=== PATIENT | male | born 1960 | race Caucasian/White ===

== ENCOUNTER 2017-09-11 04:49 | Emergency (ER) | payer OTHER ==
[~2017-09-11] VITALS: Ht 167.6 cm; Wt 75.0 kg
[~2017-09-11 04:49] MED LIST: AMLO2.5T PO
[2017-09-11 04:52] VITALS: BP 141/78; PULSE 91; RESP 18; TEMP 98.2; O2SAT 98
[2017-09-11 05:06] VITALS: BP 133/85; PULSE 87; RESP 20; O2SAT 95
[2017-09-11] MEDS ORDERED: MEDR4TAB PO (05:06)
[2017-09-11] MEDS ORDERED: BACT800T5 PO (05:06)
[2017-09-11] MEDS ORDERED: MUPI2OIN TOPICAL (05:06)
[2017-09-11] MEDS ORDERED: SODIUM CHLOR 0.9% 1000 ML INJ 1,000 ML IV SCH (05:14)
[2017-09-11] MEDS ORDERED: METOCLOPRAMIDE HCL 10 MG/2 ML VIAL IV PUSH ONE (05:15)
[2017-09-11] MEDS ORDERED: SODIUM CHLORIDE 0.9% FLUSH 10 ML FLUSH IV FLUSH PRN (05:15)
--- NOTE | 2017-09-11 05:23 | PD ---
HPI Chief Complaint: GI Complaint Time Seen by Provider: 05:07 Travel History International Travel<30 days: No Contact w/Intl Traveler<30days: No Traveled to known affect area: No History of Present Illness HPI Patient is a 57-year-old male who presents the emergency room complaints of nausea vomiting and dizziness. Patient reports that he was recently treated for right elbow infection with Bactrim. Patient reports that his right elbow infection has improved, reports that he has almost complete his full course of his antibiotics as well as his Medrol Dosepak. Patient reports that over the past 2 days, he has developed nausea, vomiting and abdominal pain. Patient reports that since yesterday, he has been unable to keep down any fluids or foods, patient reports that last night, he began to feel dizzy. Patient reports that he feels as if he has vertigo as he has had this in the past. Reports that his abdomen does feel crampy, there is no focal pain. Denies fever /chills. Denies sick contacts. PFSH Past Medical History Medical History: Denies Significant Hx Diminished Hearing: No Tetanus Vaccination: < 5 Years Influenza Vaccination: No Past Surgical History Surgical History: No Previous Surgery Social History Alcohol Use: Yes (6 PACK ADAY) Tobacco Use: Yes (2-3 PPD) Substance Use: No Allergies-Medications (Allergen,Severity, Reaction): Coded Allergies: No Known Allergies (Verified Adverse Reaction, Unknown, 09/11/17) Reported Meds & Prescriptions Reported Meds & Active Scripts Active Amlodipine (Amlodipine Besylate) 2.5 Mg Tab 2.5 Mg PO DAILY Reported Bactrim DS (Sulfamethoxazole-Trimethoprim) 800-160 Mg Tab 1 Tab PO BID Medrol (Methylprednisolone) 4 Mg Tab 4 Mg PO TAPER Mupirocin Topical (Mupirocin) 2 % Oint 1 Applic TOPICAL BID Review of Systems General / Constitutional: No: Fever Eyes: No: Visual changes HENT: Positive: Lightheadedness, No: Headaches Cardiovascular: No: Chest Pain or Discomfort Respiratory: No: Shortness of Breath Gastrointestinal: Positive: Nausea, Vomiting, Diarrhea, No: Abdominal Pain Genitourinary: No: Dysuria Musculoskeletal: No: Pain Skin: No Rash Neurologic: Positive: Dizziness, No: Weakness Psychiatric: No: Depression Endocrine: No: Polydipsia Hematologic/Lymphatic: No: Easy Bruising Physical Exam Narrative GENERAL: NAD SKIN: Focused skin assessment warm/dry. HEAD: Atraumatic. Normocephalic. EYES: Pupils equal and round. No scleral icterus. No injection or drainage. ENT: No nasal bleeding or discharge. Mucous membranes pink and moist. NECK: Trachea midline. No JVD. CARDIOVASCULAR: Regular rate and rhythm. No murmur appreciated. RESPIRATORY: No accessory muscle use. Clear to auscultation. Breath sounds equal bilaterally. GASTROINTESTINAL: Abdomen soft, non-tender, nondistended. Hepatic and splenic margins not palpable. MUSCULOSKELETAL: No obvious deformities. No clubbing. No cyanosis. No edema. NEUROLOGICAL: Awake and alert. No obvious cranial nerve deficits. Motor grossly within normal limits. Normal speech. CN 2- 12 grossly intact with no neurological deficits PSYCHIATRIC: Appropriate mood and affect; insight and judgment normal. Data Data Last Documented VS Vital Signs Date Time Temp Pulse Resp B/P (MAP) Pulse Ox O2 Delivery O2 Flow Rate FiO2 09/11/17 05:27 16 96 Room Air 09/11/17 05:06 87 09/11/17 04:52 98.2 Orders Orders Complete Blood Count With Diff (09/11/17 05:14) Comprehensive Metabolic Panel (09/11/17 05:14) Lipase (09/11/17 05:14) Prothrombin Time / Inr (Pt) (09/11/17 05:14) Act Partial Throm Time (Ptt) (09/11/17 05:14) Urinalysis - C+S If Indicated (09/11/17 05:14) Iv Access Insert/Monitor (09/11/17 05:14) Ecg Monitoring (09/11/17 05:14) Oximetry (09/11/17 05:14) Sodium Chlor 0.9% 1000 Ml Inj (Ns 1000 M (09/11/17 05:14) Sodium Chloride 0.9% Flush (Ns Flush) (09/11/17 05:15) Metoclopramide Inj (Reglan Inj) (09/11/17 05:15) Alcohol (Ethanol) (09/11/17 05:24) Ns (Bolus) Inj (09/11/17 06:30) Labs Laboratory Tests Test 09/11/17 05:24 White Blood Count 3.7 TH/MM3 Red Blood Count 5.33 MIL/MM3 Hemoglobin 17.0 GM/DL Hematocrit 49.3 % Mean Corpuscular Volume 92.4 FL Mean Corpuscular Hemoglobin 31.9 PG Mean Corpuscular Hemoglobin Concent 34.5 % Red Cell Distribution Width 12.6 % Platelet Count 171 TH/MM3 Mean Platelet Volume 8.2 FL Neutrophils (%) (Auto) 62.8 % Lymphocytes (%) (Auto) 10.6 % Monocytes (%) (Auto) 17.8 % Eosinophils (%) (Auto) 7.5 % Basophils (%) (Auto) 1.3 % Neutrophils # (Auto) 2.3 TH/MM3 Lymphocytes # (Auto) 0.4 TH/MM3 Monocytes # (Auto) 0.7 TH/MM3 Eosinophils # (Auto) 0.3 TH/MM3 Basophils # (Auto) 0.0 TH/MM3 CBC Comment DIFF FINAL Differential Comment Prothrombin Time 10.2 SEC Prothromb Time International Ratio 1.0 RATIO Activated Partial Thromboplast Time 29.0 SEC Blood Urea Nitrogen 15 MG/DL Creatinine 1.13 MG/DL Random Glucose 111 MG/DL Total Protein 7.4 GM/DL Albumin 3.6 GM/DL Calcium Level 8.3 MG/DL Alkaline Phosphatase 74 U/L Aspartate Amino Transf (AST/SGOT) 19 U/L Alanine Aminotransferase (ALT/SGPT) 26 U/L Total Bilirubin 0.3 MG/DL Sodium Level 135 MEQ/L Potassium Level 3.8 MEQ/L Chloride Level 101 MEQ/L Carbon Dioxide Level 24.3 MEQ/L Anion Gap 10 MEQ/L Estimat Glomerular Filtration Rate 67 ML/MIN Lipase 163 U/L Ethyl Alcohol Level LESS THAN 3 MG/DL MDM Medical Decision Making Medical Screen Exam Complete: Yes Emergency Medical Condition: Yes Medical Record Reviewed: Yes Interpretation(s) Vital Signs Date Time Temp Pulse Resp B/P (MAP) Pulse Ox O2 Delivery O2 Flow Rate FiO2 09/11/17 05:06 87 20 133/85 (101) 95 Room Air 09/11/17 04:52 98.2 91 18 141/78 (99) 98 Differential Diagnosis Electrolyte abnormality, viral syndrome, vertigo, posterior CVA, dehydration, alcohol withdrawal Narrative Course During the course of the patients emergency department visit, the patients history, examination, and differential diagnosis were reviewed with the patient. The patient was placed on a medical staff credentialing coordinator with oximetry and frequent blood pressure monitoring. The patient had an IV access obtained and blood work sent for analysis. The patient was initially provided IV fluids as well as IV Reglan. The patients laboratory studies were reviewed and remarkable for CBC & BMP Diagram 09/11/17 05:24 Total Protein 7.4, Albumin 3.6, Calcium Level 8.3 L, Alkaline Phosphatase 74, Aspartate Amino Transf (AST/SGOT) 19, Alanine Aminotransferase (ALT/SGPT) 26, Total Bilirubin 0.3 patient re-evaluated, patient feeling much better at this time. he is able to tolerate a po trail and drank Gatorade without any difficulties. I reviewed all labs and studies with patient in detail. Signs and symptoms of when to return to the ER was reviewed with patient in detail. At discharge, abdomen is soft, nd/nt, no peritoneal signs. patient appreciative of care Diagnosis Primary Impression: Nausea vomiting and diarrhea Patient Instructions: General Instructions Additional Instructions: Please provide patient with a copy of their lab work and studies at discharge* * Please follow up with your primary care doctor in 2-3 days Return to the ER if symptoms worsen or progress Return to the ER as needed Med/Other Pt SpecificInfo: Prescription(s) given Scripts Ondansetron (Zofran) 4 Mg Tab 4 MG PO Q6HR Y for NAUSEA OR VOMITING, #20 TAB 0 Refills Prov: Bijal Faye DO 09/11/17 Disposition: 01 DISCHARGE HOME Condition: Stable Bijal Faye DO Sep 11, 2017 05:23
[2017-09-11 05:27] VITALS: RESP 16; O2SAT 96
[2017-09-11 05:38] LABS: AUTOMATED NEUTROPHIL # 2.3 TH/MM3 (1.8-7.7); BASOPHIL % 1.3 % (0.0-2.0); EOSINOPHIL # 0.3 TH/MM3 (0-0.4); EOSINOPHIL % 7.5 % (0.0-4.0); HEMATOCRIT 49.3 % (39.0-51.0); LYMPH % 10.6 % (9.0-44.0); LYMPHOCYTE # 0.4 TH/MM3 (1.0-4.8); MEAN CELL VOLUME 92.4 FL (80.0-100.0); MEAN CORPUSCULAR HEMOGLOBIN 31.9 PG (27.0-34.0); MEAN CORPUSCULAR HGB CONC 34.5 % (32.0-36.0); MEAN PLATELET VOLUME 8.2 FL (7.0-11.0); MONO % 17.8 % (0.0-8.0); MONOCYTE # 0.7 TH/MM3 (0-0.9); NEUT % 62.8 % (16.0-70.0); PLATELET COUNT 171 TH/MM3 (150-450); RED BLOOD COUNT 5.33 MIL/MM3 (4.50-5.90); RED CELL DISTRIBUTION WIDTH 12.6 % (11.6-17.2); WHITE BLOOD COUNT 3.7 TH/MM3 (4.0-11.0)
[2017-09-11 05:46] LABS: PROTHROMBIN TIME - PATIENT 10.2 SEC (9.8-11.6)
[2017-09-11 06:03] LABS: ALKALINE PHOSPHATASE 74 U/L (45-117); TOTAL BILIRUBIN ADULT 0.3 MG/DL (0.2-1.0); TOTAL PROTEIN 7.4 GM/DL (6.4-8.2)
[2017-09-11 06:06] LABS: ALBUMIN 3.6 GM/DL (3.4-5.0); ALT (GPT) 26 U/L (12-78); AST (GOT) 19 U/L (15-37); BICARBONATE 24.3 MEQ/L (21.0-32.0); BLOOD UREA NITROGEN 15 MG/DL (7-18); CALCIUM 8.3 MG/DL (8.5-10.1); CHLORIDE 101 MEQ/L (98-107); CREATININE 1.13 MG/DL (0.60-1.30); GLOMERULAR FILTRATION RATE 67 ML/MIN (>89); GLUCOSE,RANDOM 111 MG/DL (74-106); SODIUM (NA) 135 MEQ/L (136-145)
[2017-09-11] MEDS ORDERED: SODIUM CHLOR 0.9% 1000 ML INJ 1,000 ML IV ONE (06:30)
[2017-09-11] MEDS ORDERED: ZOFR4TAB PO (06:30)
== END 2017-09-11 07:35 | disposition home or self-care (01) ==
LOC: NEPE 04:49
DX: R11.2 Nausea with vomiting, unspecified (principal); R19.7 Diarrhea, unspecified; R42 Dizziness and giddiness; F17.200 Nicotine dependence, unspecified, uncomplicated; Z79.899 Other long term (current) drug therapy
CPT/HCPCS: 80053; 80307; 83690; 85025; 85610; 85730; 96361; 96374; 99284; J2765; J7030